=== PATIENT | female | born 1940 | race Caucasian/White ===

== ENCOUNTER 2021-08-17 16:33 | Emergency (ER) | payer OTHER ==
[~2021-08-17 16:33] MED LIST: AMITIZA24 MCG PO; ASPIRIN EC81 MG PO; DAILY MULTIPLE1 EAC1 PO; ELIQUIS 5 MG TAB5 MG PO; FLUZONE QU60 MCG/018 IM; HYDROCHLOROTHIA25 MG PO; LEVOTHYROXINE50 MCG PO; LOPRESSOR 25 MG25 MG PO; PANTOPRAZOLE SO40 MG PO; POTASSIUM CHLO20 ME2 PO; VITAMIN D325 MC6 PO
[2021-08-17 17:09] LABS: HEMOGLOBIN 12.6 gm/dl (12.3-15.3); RED BLOOD COUNT 3.88 M/UL (4.00-5.10); WHITE BLOOD COUNT 7.2 K/UL (4.5-11.0)
[2021-08-17 17:33] LABS: BUN/CREATININE RATIO 17 (0-10)
== END 2021-08-17 20:11 | disposition home or self-care (01) ==
LOC: ER1 16:33
PROVIDERS: Student in an Organized Health Care Education/Training Program
DX: I47.1 Supraventricular tachycardia (principal)
CPT/HCPCS: 71045; 80053; 82550; 82553; 83874; 84439; 84443; 84484; 85025; 93005; 96374; 99285; J0153

== ENCOUNTER → 2021-09-18 | Outpatient (CLI) | payer OTHER ==
[2021-09-18 13:06] LABS: HEMOGLOBIN 12.1 gm/dl (12.3-15.3); RED BLOOD COUNT 3.82 M/UL (4.00-5.10); WHITE BLOOD COUNT 5.8 K/UL (4.5-11.0)
== END ==
LOC: LAB 12:27
PROVIDERS: Internal Medicine Cardiovascular Disease
DX: I47.1 Supraventricular tachycardia (principal)
CPT/HCPCS: 36415; 80048; 85025

== ENCOUNTER → 2021-11-11 | Outpatient (CLI) | payer OTHER ==
[~2021-11-11] MED LIST changes: +DILTIAZEM ER120 M1 PO; +MECLIZINE HCL25 MG PO; +NITROGLYCERIN0.4 MG SL
[2021-11-11 11:49] LABS: HEMOGLOBIN 11.9 gm/dl (12.3-15.3); RED BLOOD COUNT 3.72 M/UL (4.00-5.10); WHITE BLOOD COUNT 4.5 K/UL (4.5-11.0)
[2021-11-11 12:16] LABS: BUN/CREATININE RATIO 16 (0-10)
== END ==
LOC: LAB 11:13
PROVIDERS: Internal Medicine Cardiovascular Disease
DX: I47.1 Supraventricular tachycardia (principal)
CPT/HCPCS: 36415; 71046; 80048; 85025

== ENCOUNTER 2021-11-13 10:05 | Inpatient (IN) | payer OTHER ==
[~2021-11-13] VITALS: Ht 172.7 cm; Wt 79.4 kg
[~2021-11-13 10:05] MED LIST changes: -DILTIAZEM ER120 M1 PO; -MECLIZINE HCL25 MG PO; -NITROGLYCERIN0.4 MG SL
[2021-11-13] MEDS ORDERED: DILTIAZEM ER120 M1 PO (11:05)
[2021-11-13] MEDS ORDERED: MECLIZINE HCL25 MG PO (11:05)
[2021-11-13] MEDS ORDERED: NITROGLYCERIN0.4 MG SL (11:06)
--- NOTE | 2021-11-13 21:12 | NUR ---
PT DISCHARGED TO HOME/ SELF CARE. IV SITE TO RFA REMOVED CATHETER TIP INTACT. CATH SITE TO R GROIN CLEAN, DRY, NO SWELLING NOTED. PT DENIES ANY PAIN, NUMBNESS OR TINGLING, AMBULATES SELF W/O ISSUE, PULSES 2+ IN BLE. DISCHARGE INSTRUCTIONS GIVEN TO PT WITH THE ABILITY TO ASK QUESTIONS. PT VERBALIZES UNDERSTANDING AND DENIES ANY QUESTIONS AT THIS TIME. PT VERBALIZED UNDERTSANDING OF FOLLOW UP WITH DR. FAUST IN 4 WEEKS. PT ESCORTED OUT OF THE FACILITY INTO THE COMPANY OF HER SON.
== END 2021-11-13 20:45 | disposition home or self-care (01) | DRG 274 ==
LOC: CATH 10:05 → CDU 17:12 → PROG CARE 17:31
PROVIDERS: ADMIT Internal Medicine Cardiovascular Disease
PROC: 4A027FZ Measurement of Cardiac Rhythm, Via Natural or Artificial Opening (ICD-10-PCS; principal; 2021-11-13)
PROC: 4A0274Z Measurement of Cardiac Electrical Activity, Via Natural or Artificial Opening (ICD-10-PCS; 2021-11-13)
DX: I47.1 Supraventricular tachycardia (principal); Z20.822 Contact with and (suspected) exposure to COVID-19; E03.9 Hypothyroidism, unspecified; J30.9 Allergic rhinitis, unspecified; I10 Essential (primary) hypertension; E78.5 Hyperlipidemia, unspecified; K59.09 Other constipation; I51.7 Cardiomegaly; M54.16 Radiculopathy, lumbar region; G43.909 Migraine, unspecified, not intractable, without status migrainosus; M19.90 Unspecified osteoarthritis, unspecified site; M81.0 Age-related osteoporosis without current pathological fracture; F32.A Depression, unspecified; G89.29 Other chronic pain; K21.9 Gastro-esophageal reflux disease without esophagitis; Z86.39 Personal history of other endocrine, nutritional and metabolic disease; Z79.01 Long term (current) use of anticoagulants; Z79.82 Long term (current) use of aspirin; Z87.440 Personal history of urinary (tract) infections; Z90.710 Acquired absence of both cervix and uterus; Z90.49 Acquired absence of other specified parts of digestive tract; Z93.3 Colostomy status; Z82.49 Family history of ischemic heart disease and other diseases of the circulatory system; Z98.42 Cataract extraction status, left eye; Z98.41 Cataract extraction status, right eye
CPT/HCPCS: 93620; 93623; 99152; 99153; C1730; C1766; J1644; J2250; J3010; J7040